=== PATIENT | male | born 1950 | race Caucasian/White ===

== ENCOUNTER 2019-10-19 11:27 | Emergency (ER) | payer MEDICARE, OTHER, SELFPAY ==
[2019-10-19 11:44] VITALS: BP 114/74; PULSE 86; RESP 16; TEMP 36.4; O2SAT 100
--- NOTE | 2019-10-19 11:45 | ED.URI ---
HPI - URI/Sore Throat General Chief Complaint: Ear Stated Complaint: POSSIBLE SINUS INFECTION Time Seen by Provider: 10/19/19 11:47 Source: patient and RN notes reviewed Mode of arrival: ambulatory Limitations: no limitations History of Present Illness HPI Narrative: 69-year-old male presents with concern for nasal congestion, right ear pain. Reports symptoms have been present for 1 week. Reports right ear pain is worsened. Reports [id number] sinus allergy medications with no relief. Denies cough, fever, general malaise. MD elicited complaint: nasal congestion and other (Ear pain) Related Data Home Medications Medication Instructions Recorded Confirmed Aspir-81 10/19/19 Vitamin D3 10/19/19 alprazolam 10/19/19 atorvastatin 10/19/19 famotidine 20 mg PO DAILY 10/19/19 10/19/19 finasteride mg 10/19/19 tamsulosin mg PO 10/19/19 valsartan-hydrochlorothiazide tablet 10/19/19 Allergies Allergy/AdvReac Type Severity Reaction Status Date / Time No Known Allergies Allergy Unverified 01/18/18 09:02 Review of Systems Review of Systems: Narrative: CONSTITUTIONAL: Denies malaise, chills, sweats, or fever. EYES: Denies visual changes, redness, or discharge. ENT: Reports rhinorrhea, congestion, right otalgia. Denies sinus pain, and sore throat. CARDIOVASCULAR: Denies chest pain, palpitations, or edema. RESPIRATORY: Denies cough or dyspnea. GASTROINTESTINAL: Denies abdominal pain, nausea, vomiting, diarrhea SKIN: Denies rash or itching. MUSCULOSKELETAL: Denies myalgia. NEUROLOGIC: Denies headache. All systems reviewed & are unremarkable except as noted in HPI and below PMFSH Comments At time of signature, agree with nursing past medical, surgical, social and family history. There is no relevant family history pertinent to the presenting complaint Exam Narrative: Exam Narrative: GENERAL: Well-appearing, well-nourished, and in no acute distress. HEAD: Normocephalic EYES: PERRLA, conjunctivae clear ENT: Nares clear, turbinates edematous and erythematous, clear discharge. Mucous membranes moist. TM not visible due to excessive cerumen bilaterally; mild right tragal tenderness. Oropharynx not erythematous without lesions. Tonsils not enlarged and without exudate, no drooling, no hoarseness, no trismus, uvula midline. NECK: Supple. No lymphadenopathy CHEST: Clear to auscultation, breath sounds equal. No wheezing, rhonchi, rales, or stridor. No respiratory distress, speaks in full sentences. HEART: Regular rate and rhythm. No murmur heard. SKIN: Warm, dry, no rash. NEURO: Alert and oriented x3. PSYCH: Normal mood and affect Course Course Emergency Course: Patient is aware of diagnosis, understands and agrees to treatment plan. Anticipatory guidance given. Patient agrees to follow-up as directed and is aware of reasons to seek care at the emergency department. Portions of this record may have been created with voice recognition software Vital Signs Vital signs: Vital Signs Temperature 97.5 F L 10/19/19 11:44 Pulse Rate 86 10/19/19 11:44 Respiratory Rate 16 10/19/19 11:44 Blood Pressure 114/74 10/19/19 11:44 Pulse Oximetry 100 10/19/19 11:44 Temperature 97.5 F L 10/19/19 11:44 Pulse Rate 86 10/19/19 11:44 Respiratory Rate 16 10/19/19 11:44 Blood Pressure 114/74 10/19/19 11:44 Pulse Oximetry 100 10/19/19 11:44 Reviewed. Procedures Ear Wax Removal Right Ear: Ear Wax Removal Date: 10/19/19 Ear Wax Removal Time: 12:00 Results: Re-examined: some cerumen remains Ear Canal Exam: bleeding Noted Patient Tolerated Procedure: no complications Complications: no problems Technique: ear canal irrigated and ear canal curetted Additional Comments: Unable to completely remove cerumen, still unable to visualize TM MDM - URI/Sore Throat MDM Narrative Medical decision making narrative: Differential diagnosis considered: Strep pharyngitis,
--- NOTE | 2019-10-19 12:00 | PC.NURSE ---
ear irrigation set up done.
--- NOTE | 2019-10-19 12:17 | PC.NURSE ---
1210, resting in room with right ear soak by moisture meter reader and aware of awaiting right ear irrigation by moisture meter reader.
== END 2019-10-19 12:31 | disposition home or self-care (01) ==
PROVIDERS: Emergency Provider Nurse Practitioner; PCP Internal Medicine
DX: H61.21 Impacted cerumen, right ear (principal); J01.90 Acute sinusitis, unspecified; H60.501 Unspecified acute noninfective otitis externa, right ear; I10 Essential (primary) hypertension; E78.00 Pure hypercholesterolemia, unspecified; N40.0 Benign prostatic hyperplasia without lower urinary tract symptoms
CPT/HCPCS: 69210; 99213; G0463